=== PATIENT | male | born 1950 | race Caucasian/White ===

== ENCOUNTER 2017-06-25 10:11 | Day surgery (SDC) | payer MEDICARE ==
[2017-06-25 10:24] VITALS: BMI 23.6
[2017-06-25] MEDS ORDERED: Lactated Ringer's 1,000 ML IV ONE (11:50)
[2017-06-25] MEDS ORDERED: Midazolam 2 MG/2 ML VIAL ONE (11:50)
[2017-06-25] MEDS ORDERED: methylPREDNISolone Depo 80 mg/ml Inj ONE (11:51)
[2017-06-25] MEDS ORDERED: Lidocaine 1% Inj (20ml) ONE (11:52)
[2017-06-25] MEDS ORDERED: Iohexol 300 10 ML ONE (11:52)
[2017-06-25] MEDS ORDERED: Bupivacaine HCl 0.25% PF (10 ml) Inj ONE (11:52)
[2017-06-25] MEDS ORDERED: Lidocaine 1% Inj (20ml) IJ ONE (11:57)
[2017-06-25] MEDS ORDERED: Bupivacaine-Epi 0.25%-1:200,000 PF Inj IJ ONE (11:57)
[2017-06-25] MEDS ORDERED: methylPREDNISolone Depo 80 mg/ml Inj IM ONE (11:59)
[2017-06-25] MEDS ORDERED: Iohexol 300 10 ML IJ ONE (11:59)
[2017-06-25 12:45] VITALS: RESP 18
[2017-06-25 13:24] VITALS: PULSE 61
[2017-06-25 13:41] VITALS: BP 127/74; TEMP 97.7; O2SAT 99
--- NOTE | 2017-06-26 01:55 | OP ---
PROCEDURE DATE: 06/25/2017 PREOPERATIVE DIAGNOSIS: Lumbar radiculopathy. POSTOPERATIVE DIAGNOSIS: Lumbar radiculopathy. PROCEDURE: Right L3-L4, L4-L5 transforaminal epidural steroid injection. ANESTHESIOLOGIST: Dr. Dias. SURGEON: Russ Valdez MD ANESTHESIA: Monitored anesthesia care. COMPLICATIONS: None. SPECIMEN: None. PROCEDURE: As follows, after re-discussion of the procedure with the patient including its risks, benefits, alternatives, outcome data, possibility of no effects, increased pain, the patient consented to the procedure. He denied any recent infection, bleeding tendencies or being on anticoagulants. The decision was then made to proceed to the OR. The patient was placed on a fluoroscopy table in a prone position with 2 pillows underneath his abdomen. The back was prepped and draped in a usual sterile fashion and sterile technique was adhered to during the entire procedure. The L3 and L4 vertebrae levels were first identified in the anterior and posterior view. Angulation towards the right at approximately 25 degrees was obtained to maximize the visualization of the right L3 and L4 pedicles. The skin overlying the 6 o'clock position of both pedicles was infiltrated with 1% lidocaine using 25 gauge needle. Subsequently, a 22-gauge 3.5-inch spinal needle was incrementally advanced under fluoroscopic guidance until tip of the needle walk into the intervertebral foramen. The final needle position was confirmed under anterior and posterior view and lateral views. After satisfactory positioning of both needles, approximately 0.5 mL of Isovue contrast was injected into each needle. There was appropriate contrast spread in the L4-L5 region, but the L3-L4 region shows contrast spillage into likely the L3-L4 disc. This likely represents the continuation of the disc herniation in the right lateral foramen during the needle placement. The needle was then slightly withdrawn and then contrast was injected one more time. At this time, it shows appropriate epidural spread without any signs of CSF or intervenous involvement. At this point, approximately 3 mL of 0.25% Marcaine and Depo-Medrol mixture was injected into each needle. At the end of the case, the needles were removed and the patient's back was cleaned and dried and bandages were applied. The patient was then transferred to recovery area in good condition without any signs of [employer] toxicity or any neurological deficits. He will have a follow up in office in approximately 2-4 weeks. Russ Valdez MD [facility] # [id number]
== END 2017-06-25 14:15 | disposition home or self-care (01) ==
LOC: H.OPSURG 10:11
PROVIDERS: ATTEND Anesthesiology
DX: M54.16 Radiculopathy, lumbar region (principal); N40.0 Benign prostatic hyperplasia without lower urinary tract symptoms; M54.5 Low back pain
CPT/HCPCS: 64483; 64484; J1040; J2250; J3010; J7120; Q9967